=== PATIENT | female | born 1940 | race Caucasian/White ===

== ENCOUNTER 2018-01-04 15:26 | Outpatient (CLI) | payer MEDICARE ==
--- NOTE | 2018-01-04 18:32 | RAD ---
BARIUM ENEMA: 01/04/2018 HISTORY: Incomplete colonoscopy. Colonic diverticulosis. FINDINGS: Programmer Developer imaging demonstrates a nonobstructed bowel gas pattern. There is a mild to moderate degree of gas within the colon on ecotherapist imaging. Barium was then instilled in a retrograde fashion, filling th e colon, including the appendix. Of note, the colon is tortuous in the sigmoid region with numerous sigmoid diverticula noted. No diverticula noted elsewhere within the colon. There is redundancy and tortuosity of the colon throughout the abdomen and pelvis. The transverse colon extends down into t he lower pelvis before extending into the right upper quadrant. Contrast media fills the appendix. No discrete mass lesion or area of colonic luminal narrowing is noted. IMPRESSION: Numerous sigmoid colonic diverticula. No discrete mass lesion or evidence of stricture seen. POS: [facility]
== END 2018-01-04 15:27 | disposition home or self-care (01) ==
LOC: RAD 15:26
PROVIDERS: ATTEND Internal Medicine Gastroenterology
DX: K56.699 Other intestinal obstruction unspecified as to partial versus complete obstruction (principal); K57.30 Diverticulosis of large intestine without perforation or abscess without bleeding
CPT/HCPCS: 74270